=== PATIENT | female | born 1955 | race Two or more races ===

== ENCOUNTER 2020-06-22 04:24 | Emergency (ER) | payer OTHER, MEDICAID ==
[~2020-06-22] VITALS: Ht 154.9 cm; Wt 76.2 kg
--- NOTE | 2020-06-22 04:29 | NUR ---
Patient brought in by RA 90, complaints of shortness of breath and left shoulder pain, saturating 98% on room air
--- NOTE | 2020-06-22 04:50 | NUR ---
at bedside for assessment
[2020-06-22] MEDS ORDERED: IV NORMAL SALINE 500 ML BAG IV ONE (05:15)
[2020-06-22 05:31] LABS: BASOPHILS % (AUTO) 0.6 % (0.0-2.0); EOSINOPHILS # (AUTO) 0.2 K/uL (0.0-0.7); EOSINOPHILS % (AUTO) 4.5 % (0.0-7.0); HEMATOCRIT 24.2 % (31.2-41.9); LYMPHOCYTES # (AUTO) 0.8 K/uL (20.0-40.0); LYMPHOCYTES % (AUTO) 16.7 % (20.5-51.5); MEAN CORPUSCULAR HEMOGLOBIN 26.7 uug (24.7-32.8); MEAN CORPUSCULAR HGB CONC 33 g/dL (32.3-35.6); MEAN CORPUSCULAR VOLUME 80.3 fL (75.5-95.3); MONOCYTES # (AUTO) 0.4 K/uL (2.0-10.0); MONOCYTES % (AUTO) 7.7 % (0.0-11.0); NEUTROPHILS # (AUTO) 3.6 K/uL (1.8-8.9); NEUTROPHILS % (AUTO) 70.5 % (38.5-71.5); PLATELET COUNT (AUTO) 124 K/uL (179-408); RED BLOOD CELL COUNT(AUTO) 3.01 MIL/uL (3.63-4.92); WHITE BLOOD COUNT (AUTO) 5.1 K/uL (3.8-11.8)
[2020-06-22 05:35] LABS: CARBON DIOXIDE 21 mmol/L (21-32); CHLORIDE 103 mmol/L (98-107); CREATININE 1.9 mg/dL (0.6-1.3); POTASSIUM 3.4 mmol/L (3.5-5.1); UREA NITROGEN, BLOOD 31 mg/dL (7-18)
[2020-06-22 05:43] LABS: ETHANOL < 3 MG/DL (0-0)
[2020-06-22 05:44] LABS: GLUCOSE 49 mg/dL (74-106)
[2020-06-22 05:48] LABS: BILIRUBIN,DIRECT 0.4 mg/dL (0.0-0.2); BILIRUBIN,TOTAL 0.6 mg/dL (0.2-1.0); TOTAL PROTEIN, SERUM 5.6 g/dL (6.4-8.2)
[2020-06-22] MEDS ORDERED: DEXTROSE 50% 50 ML DISP.SYRIN ONE (05:52)
[2020-06-22] MEDS ORDERED: VANCOMYCIN IV 1,000 MG in IV DEXTROSE 5% 250 ML IV SCH (06:00)
[2020-06-22] MEDS ORDERED: PIPERACILLIN SODIUM/TAZOBACTAM 3.375 G in IV DEXTROSE 5% 50 ML IV ONE (06:00)
[2020-06-22] MEDS ORDERED: DEXTROSE 50% 50 ML DISP.SYRIN IV ONE (06:00)
[2020-06-22 06:05] LABS: THYROID STIMULATING HORMONE 4.756 mIU/mL (0.358-3.740)
[2020-06-22] MEDS ORDERED: PIPERACILLIN/TAZOBACTAM/D5W 50 ML IV ONE (06:10)
[2020-06-22] MEDS ORDERED: VANCOMYCIN IV 200 ML ONE (06:10)
--- NOTE | 2020-06-22 07:12 | NUR ---
Received pt. sleeping intermittently, when aroused AAOx4. afebrila with complains of feeling cold. vitals of 147/70, rr 16, Bradicardic fluctuating between 48-57. IV to RFA G 20. patent and infusing with vanco. Will continue with care plan.
--- NOTE | 2020-06-22 08:14 | NUR ---
Daughter- Denia Miller. [phone]
--- NOTE | 2020-06-22 08:14 | NUR ---
pt verbalizing desire to leave AMA stating "you guys are doing nothing to help me" pt. educated on current medical treatment and that we are waiting for Covid-19 test results to be transfer to [facility]. informed of pt's desires, and at this time a call from pt's daughter, updated daughter on care plan.
--- NOTE | 2020-06-22 08:16 | NUR ---
Pt refusing to eat breakfast.
--- NOTE | 2020-06-22 08:17 | NUR ---
151/101 hr of 52, rr 18. saturation of 96% on RA.
--- NOTE | 2020-06-22 08:29 | NUR ---
a call to Jazzy lorenzo's insurance agency sales manager and she was informed of Covid-19 negative results. and hard copy of results also faxed to
--- NOTE | 2020-06-22 09:21 | NUR ---
patient sleeping comfortably HR of 51, sbp of 149/73, rr18, 100% on RA. Awaiting for insurance resoponse for transfer process.
--- NOTE | 2020-06-22 09:59 | NUR ---
Received telephone from Flip from pt's HMO who states they have accepted the pt. Pt will be transfered to [facility], room 648, call [phone] ext. [phone] for report. 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
--- NOTE | 2020-06-22 10:08 | NUR ---
A call to [facility] at ext [phone] and at this time I spoke with Ms. Talamantes staff training and development manager inthis unit. [facility] telephone number left and I was informed that charge Aracelis Kennedy will call as when ready to get report.
--- NOTE | 2020-06-22 10:30 | NUR ---
A call from [facility] and report given to Aracelis Kennedy all questions answered she was also informed of ETP. from [facility].
--- NOTE | 2020-06-22 10:41 | NUR ---
PT's daughter Ms. Miller also informed of pt's destination.
--- NOTE | 2020-06-22 10:46 | NUR ---
a call from [facility] and ETA of 1130 with AO of [id number] received.
--- NOTE | 2020-06-22 11:02 | NUR ---
Accucheck of 98mm/hg. patient awake and on the phone with daughter Joana.
--- NOTE | 2020-06-22 11:39 | NUR ---
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 patient's last accucheck of 98, vitals sbp 147/81, rr 18, tmep of 97.6. hr 55.
[2020-06-22 11:42] VITALS: BP 147/81
== END 2020-06-22 11:00 | disposition short-term general hospital (02) ==
LOC: ER 04:34
DX: R00.1 Bradycardia, unspecified (principal); R62.7 Adult failure to thrive; Z68.31 Body mass index [BMI] 31.0-31.9, adult; E87.6 Hypokalemia; E87.1 Hypo-osmolality and hyponatremia; D64.9 Anemia, unspecified; N17.9 Acute kidney failure, unspecified; K75.81 Nonalcoholic steatohepatitis (NASH); K74.60 Unspecified cirrhosis of liver; R18.8 Other ascites; E11.22 Type 2 diabetes mellitus with diabetic chronic kidney disease; I12.9 Hypertensive chronic kidney disease with stage 1 through stage 4 chronic kidney disease, or unspecified chronic kidney disease; N18.9 Chronic kidney disease, unspecified; E16.2 Hypoglycemia, unspecified; E03.9 Hypothyroidism, unspecified; L03.114 Cellulitis of left upper limb; N39.0 Urinary tract infection, site not specified; Z91.14 Patient's other noncompliance with medication regimen; Z20.828 Contact with and (suspected) exposure to other viral communicable diseases
CPT/HCPCS: 36415; 71045; 80048; 80076; 80307; 82140; 82962 ×2; 83880; 84439; 84443; 84484; 85025; 85730; 87040; 87426; 93005; 96361; 96365; 96375; 99285; J2543; J3370; J3490; 70030-TC; A4663; J7030